=== PATIENT | male | born 1985 | race Caucasian/White ===

== ENCOUNTER 2019-05-17 19:33 | Emergency (ER) | payer OTHER ==
[~2019-05-17] VITALS: Ht 177.8 cm; Wt 72.6 kg
[~2019-05-17 19:33] MED LIST: AZITHROMYCIN500 MG PO; DAY TIME LIQUI1 EAC1 PO; IBUPROFEN600 MG PO; NORCO 5-325 TA1 EACH PO; SUDAFED 12 HOU120 MG PO; TAMIFLU75 MG PO; ZOFRAN8 MG PO
[2019-05-17] MEDS ORDERED: BACTRIM DS TAB1 EACH PO (22:20)
[2019-05-17] MEDS ORDERED: AUGMENTIN 875-1 EACH PO (22:20)
== END 2019-05-17 22:25 | disposition home or self-care (01) ==
LOC: ED 19:33
DX: L03.116 Cellulitis of left lower limb (principal); F17.200 Nicotine dependence, unspecified, uncomplicated
CPT/HCPCS: 99283

== ENCOUNTER 2020-10-13 21:56 | Emergency (ER) | payer OTHER ==
[~2020-10-13] VITALS: Ht 180.3 cm; Wt 70.0 kg
[~2020-10-13 21:56] MED LIST changes: +AUGMENTIN 875-1 EACH PO; +BACTRIM DS TAB1 EACH PO
== END 2020-10-13 23:22 | disposition home or self-care (01) ==
LOC: ED 21:56
DX: K52.9 Noninfective gastroenteritis and colitis, unspecified (principal); F17.200 Nicotine dependence, unspecified, uncomplicated
CPT/HCPCS: 99283

== ENCOUNTER 2021-05-28 19:37 | Emergency (ER) | payer OTHER ==
[~2021-05-28] VITALS: Ht 180.3 cm; Wt 71.6 kg
[2021-05-28] MEDS ORDERED: PENICILLIN V P500 MG PO (20:56)
[2021-05-28] MEDS ORDERED: HYDROCODON-ACE1 EA10 PO (20:56)
== END 2021-05-28 21:06 | disposition home or self-care (01) ==
LOC: ED 19:37
DX: M26.39 Other anomalies of tooth position of fully erupted tooth or teeth (principal); F17.200 Nicotine dependence, unspecified, uncomplicated
CPT/HCPCS: 99282; A9270

== ENCOUNTER 2022-04-04 21:52 | Emergency (ER) | payer OTHER ==
[~2022-04-04] VITALS: Ht 177.8 cm; Wt 72.6 kg
[~2022-04-04 21:52] MED LIST changes: +HYDROCODON-ACE1 EA10 PO; +PENICILLIN V P500 MG PO
[2022-04-05] MEDS ORDERED: AMOX TR-K CLV1 EAC1 PO (00:03)
--- NOTE | 2022-04-05 11:07 | CONS ---
[facility] [address], [place] [address] Signed DATE OF CONSULTATION: 04/04/2022 REQUESTING PHYSICIAN: Jerson Solorzano MD PROBLEM: Left wrist dog bite with extreme pain of bony distal forearm. HISTORY OF PRESENT ILLNESS: This 36-year-old white man is accompanied by his significant other. He presented to the emergency room this evening having been bitten by his pit bull dog. This included puncture wounds to the right arm and elsewhere and a transverse laceration over the dorsal surface of the forearm with smaller contusions as well. Evaluation by Dr. Solorzano included neurologic exam, which shows flexion and extension reasonably intact, but the patient has extreme discomfort related to the injury. A plain x-ray was obtained showing on a PA and lateral view. No evidence of actual fracture on my examination in the area of most discomfort. I was asked to see the patient as his discomfort was out of proportion to apparent injury. His past medical history is uncertain at this time. He works for a local [employer]. He and his and children live on [address] [place]. they have young childrwen and a ( now ) pilt bull dog. REVIEW OF SYSTEMS: He denies any shortness of breath or chest pain. He is having no complaints of arm swelling. Bleeding from the left arm wound has ceased. PHYSICAL EXAMINATION: GENERAL: He appears extremely anxious, Inordinately so. He has no evidence of respiratory distress. ABDOMEN: Nondistended. EXTREMITIES: Examination of his left arm shows a transverse dorsal laceration in the distal forearm. Palpation reveals extreme pain on palpation of the bony area cephalad to the laceration itself. The wrist and hand appear to be mobile and without clear evidence of tendinous disruption. There is no crepitus. He is able to flex and extend the wrist. There is no sx of tense muscle compartment; the laceration is about 6 cm in length and not actively bleeding. LABORATORY DATA: I have reviewed the x-rays myself. The report is pending at this time. Electronically Signed By: BOSSMAN YU MD 04/05/22 1107 PATIENT NAME: SARINA COATES CONSULTATION DATE OF : 85 REPORT #: [id number] PHYSICIAN: BOSSMAN YU MD PCP: NO PRIMARY CARE PHYSICIAN REPORT IS CONFIDENTIAL AND NOT TO BE RELEASED WITHOUT AUTHORIZATION [facility] [address] [place] [id number] Signed ASSESSMENT: Dr. Solorzano has initiated irrigation of the wound, anticipating simple closure. I would recommend consideration for orthopedic consult considering the pain on palpation of the bony area. He may have a bone contusion without actual fracture --that is uncertain. Otherwise, I agree with Dr. Solorzano's approach to irrigation of the wound and closure. Orthopedic opinion would be most welcome under the circumstances of this injury, and Dr Solorzano will be considering it. He has already had tetanus prophylaxis and the dog was said to have been vaccinated for rabies in the past. MD ÁLVARO Wilkinson/RYDER /[id number] cc: JERSON SOLORZANO MD Copies: ~ Electronically Signed By: BOSSMAN YU MD 04/05/22 1107 PATIENT NAME: SARINA COATES CONSULTATION DATE OF : 85 REPORT #: [id number] PHYSICIAN: BOSSMAN YU MD PCP: NO PRIMARY CARE PHYSICIAN REPORT IS CONFIDENTIAL AND NOT TO BE RELEASED WITHOUT AUTHORIZATION
== END 2022-04-05 01:10 | disposition home or self-care (01) ==
LOC: ED 21:52
PROC: 0HQEXZZ Repair Left Lower Arm Skin, External Approach (ICD-10-PCS; principal; 2022-04-04)
DX: S71.152A Open bite, left thigh, initial encounter (principal); S61.552A Open bite of left wrist, initial encounter; Z23 Encounter for immunization; F17.200 Nicotine dependence, unspecified, uncomplicated; W54.0XXA Bitten by dog, initial encounter
CPT/HCPCS: 12004; 36415; 73110; 80053; 85025; 90714; 99283-25; A9270; J0690; J1885; J2060; J2270; J2405; J7121